=== PATIENT | female | born 1965 | race American Indian/Alaskan Native ===

== ENCOUNTER 2016-11-05 03:04 | Emergency (ER) | payer MEDICARE ==
[2016-11-05 03:36] LABS: Basophils % (Auto) 0.5 % (0.0-1.8); Eosinophils % (Auto) 8.7 % (0.0-4.3); Hematocrit 40.7 % (30.3-42.9); Hemoglobin 13.6 gm/dl (10.1-14.3); Mean Corpuscular HGB Conc 34 % (30-34); Mean Corpuscular Hemoglobin 30 pg (28-32); Mean Corpuscular Volume 89 fl (79-97); Platelet Count 164 K/mm3 (140-440); Red Blood Count 4.57 M/mm3 (3.65-5.03); White Blood Count 4.9 K/mm3 (4.5-11.0)
[2016-11-05 04:00] LABS: Alanine Aminotransferase 11 units/L (7-56); Albumin 3.8 g/dL (3.9-5); Albumin/Globulin Ratio 1.2 %; Alkaline Phosphatase 68 units/L (35-129); Anion Gap 17 mmol/L; Bilirubin,Total 0.4 mg/dL (0.1-1.2); Blood Urea Nitrogen 9 mg/dL (7-17); Calcium 8.7 mg/dL (8.4-10.2); Carbon Dioxide 24 mmol/L (22-30); Chloride 99.8 mmol/L (98-107); Glucose 108 mg/dL (65-100); Magnesium 1.9 mg/dL (1.7-2.3); Potassium 3.9 mmol/L (3.6-5.0); Sodium 137 mmol/L (137-145)
[2016-11-05 09:54] LABS: Bilirubin,Urine NEG (Negative)
[2016-11-05 09:55] LABS: Bacteria,Urine 1+ /HPF (Negative); Blood,Urine NEG (Negative); Ketones,Urine NEG (Negative); Leukocyte Esterase,Urine NEG (Negative); Nitrite,Urine NEG (Negative); Protein,Urine <15 mg/dL mg/dL (Negative); RBC,Urine < 1.0 /HPF (0.0-6.0); Urobilinogen,Urine < 2.0 mg/dL (<2.0); WBC,Urine < 1.0 /HPF (0.0-6.0)
--- NOTE | 2016-11-05 10:35 | Emergency Department Report ---
ED Syncope HPI - General Chief Complaint: Dizziness Stated Complaint: POSS SZ Time Seen by Provider: 11/05/16 10:26 - History of Present Illness Initial Comments: In actuality the patient did not have a syncopal episode. She showed me a text message from a witness who described her event. She states that he was a passenger in a vehicle when she became disoriented. The bus driver/monitor tech stated her that she was somewhat out of it. She walked in the house of her own accord. She went upstairs and laid in her bed. She did not pass out at all. There was no witnessed shaking activity. Patient states he had another episode like this a few days ago. She states she has a history of complex partial seizures and is taking 1000 mg of Keppra twice a day for this. She has an appointment with her neurologist at [facility] on for 2416 for follow-up. She cannot identify how this absence Event was any different from her prior history of complex partial seizures. There was no injury. She has returned to her baseline. Patient states that she is she moved to [place] several years ago she has had problems with her sense of smell. This is chronic condition. She states that she's had head imaging many times for these problems and nothing has shown up. She would like me to explain why she's had difficulty with her sense of smell since coming to [place]. She did not take her blood pressure medicine today which consists of HCTZ 12.5 mg only. She has previously been on lisinopril. She denies any headache or any neurological change today. She states that she would like to move back to [place] because [place] has caused her to lose her sense of smell. Timing/Prior Episodes: single episode today Precipitating Factors: Positive: none Context: sitting, standing, activity Loss of Consciousness: no loss of consciousness Current Symptoms: back to normal - Related Data Allergies/Adverse Reactions: Allergies carbamazepine [From Tegretol] Allergy (Verified 11/05/16 03:12) Dizziness Home Medications: Ambulatory Orders levETIRAcetam [Keppra TAB] 500 mg PO BID 09/14/13 traMADol [Ultram 50 MG tab] 50 mg PO Q6HR PRN #15 tablet 09/03/15 Lisinopril/Hydrochlorothiazide [Zestoretic 10-12.5 mg] 1 tab PO QDAY #30 tablet 11/05/16 ED Review of Systems ROS: Stated complaint: POSS SZ Other details as noted in HPI Constitutional: denies: chills, fever Eyes: denies: eye pain, eye discharge, vision change ENT: denies: ear pain, throat pain Respiratory: denies: cough, shortness of breath, wheezing Cardiovascular: denies: chest pain, palpitations Endocrine: no symptoms reported Gastrointestinal: denies: abdominal pain, nausea, diarrhea Genitourinary: denies: urgency, dysuria, discharge Musculoskeletal: denies: back pain, joint swelling, arthralgia Skin: denies: rash, lesions Neurological: as per HPI, confusion, other. denies: headache, weakness, numbness, paresthesias, abnormal gait Psychiatric: denies: anxiety, depression Hematological/Lymphatic: denies: easy bleeding, easy bruising ED Past Medical Hx - Past Medical History Previous Medical History?: Yes Hx Hypertension: Yes (1999) Hx Diabetes: No Hx Headaches / Migraines: Yes Hx Seizures: Yes Hx HIV: No - Surgical History Past Surgical History?: Yes Additional Surgical History: HYSTERECTOMY. X 3-;. TONSILLECTOMY. EXPLORATORY - Social History Smoking Status: Never Smoker Substance Use Type: None - Medications Home Medications: Home Medications Medication Instructions Recorded Confirmed Last Taken Type levETIRAcetam [Keppra TAB] 500 mg PO BID 09/14/13 09/03/15 09/03/15 History traMADol [Ultram 50 MG tab] 50 mg PO Q6HR PRN #15 tablet 09/03/15 Unknown Rx Lisinopril/Hydrochlorothiazide 1 tab PO QDAY #30 tablet 11/05/16 Unknown Rx [Zestoretic 10-12.5 mg] ED Physical Exam - General Limitations: No Limitations General appearance: alert, in no apparent distress - Head Head exam: Present: atraumatic, normocephalic - Eye Eye exam: Present: normal appearance, PERRL, EOMI. Absent: scleral icterus - ENT ENT exam: Present: mucous membranes moist. Absent: normal exam - Neck Neck exam: Present: normal inspection. Absent: tenderness, meningismus - Respiratory Respiratory exam: Present: normal lung sounds bilaterally. Absent: respiratory distress - Cardiovascular Cardiovascular Exam: Present: regular rate, normal rhythm. Absent: systolic murmur, diastolic murmur, rubs, gallop - GI/Abdominal GI/Abdominal exam: Present: soft, normal bowel sounds. Absent: distended, tenderness, guarding, rebound, rigid - Extremities Exam Extremities exam: Present: normal inspection - Back Exam Back exam: Present: normal inspection - Neurological Exam Neurological exam: Present: alert, oriented X3, CN II-XII intact. Absent: motor sensory deficit - Psychiatric Psychiatric exam: Present: normal affect, normal mood - Skin Skin exam: Present: warm, dry, intact, normal color. Absent: rash ED Course Vital Signs 11/05/16 11/05/16 11/05/16 03:13 06:32 11:26 Temperature 98.4 F 97.9 F Pulse Rate 62 64 66 Respiratory 18 18 Rate Blood Pressure 154/109 178/109 167/116 O2 Sat by Pulse 100 100 Oximetry - Reevaluation(s) Reevaluation #1: The patient was given clonidine. Her blood pressure improved. I could not identify an indication for repeat imaging of her head that is a CT exam. I believe there is no indication and there certainly is radiation risk. Patient was referred to her neurologist who will be seeing her in a few days. They can make a decision on any change in her Keppra dosing. Her episodes are very atypical but as far as I can ascertain they are no different from her previous episodes that have been termed complex partial seizures. 11/05/16 11:35 ED Medical Decision Making - Lab Data Result diagrams: 11/05/16 03:24 11/05/16 03:24 Laboratory Results - last 24 hr 11/05/16 11/05/16 11/05/16 03:24 03:24 03:24 WBC 4.9 RBC 4.57 Hgb 13.6 Hct 40.7 MCV 89 MCH 30 MCHC 34 RDW 13.0 L Plt Count 164 Lymph % (Auto) 6.5 L Pierce % (Auto) 7.0 Eos % (Auto) 8.7 H Baso % (Auto) 0.5 Lymph # 0.3 L Pierce # 0.3 Eos # 0.4 Baso # 0.0 Seg Neutrophils % 77.3 H Seg Neutrophils # 3.8 Sodium 137 Potassium 3.9 Chloride 99.8 Carbon Dioxide 24 Anion Gap 17 BUN 9 Creatinine 0.6 L Estimated GFR > 60 BUN/Creatinine Ratio 15.00 Glucose 108 H Calcium 8.7 Magnesium 1.9 Total Bilirubin 0.4 AST 13 ALT 11 Alkaline Phosphatase 68 Total Protein 7.0 Albumin 3.8 L Albumin/Globulin Ratio 1.2 TSH 2.540 Urine Color Urine Turbidity Urine pH Ur Specific Lambert Urine Protein Urine Glucose (UA) Urine Ketones Urine Blood Urine Nitrite Urine Bilirubin Urine Urobilinogen Ur Leukocyte Esterase Urine WBC (Auto) Urine RBC (Auto) U Epithel Cells (Auto) Urine Bacteria (Auto) 11/05/16 09:29 WBC RBC Hgb Hct MCV MCH MCHC RDW Plt Count Lymph % (Auto) Pierce % (Auto) Eos % (Auto) Baso % (Auto) Lymph # Pierce # Eos # Baso # Seg Neutrophils % Seg Neutrophils # Sodium Potassium Chloride Carbon Dioxide Anion Gap BUN Creatinine Estimated GFR BUN/Creatinine Ratio Glucose Calcium Magnesium Total Bilirubin AST ALT Alkaline Phosphatase Total Protein Albumin Albumin/Globulin Ratio TSH Urine Color Yellow Urine Turbidity Clear Urine pH 7.0 Ur Specific Lambert 1.010 Urine Protein <15 mg/dl Urine Glucose (UA) Neg Urine Ketones Neg Urine Blood Neg Urine Nitrite Neg Urine Bilirubin Neg Urine Urobilinogen < 2.0 Ur Leukocyte Esterase Neg Urine WBC (Auto) < 1.0 Urine RBC (Auto) < 1.0 U Epithel Cells (Auto) < 1.0 Urine Bacteria (Auto) 1+ - EKG Data -: EKG Interpreted by Me EKG shows normal: sinus rhythm, axis, intervals, QRS complexes, ST-T waves - EKG Data Interpretation: nonspecific ST-T wave [email or web address] Critical care attestation.: If time is entered above; I have spent that time in minutes in the direct care of this critically ill patient, excluding procedure time. ED Disposition Clinical Impression: Poorly-controlled hypertension, Anosmia Complex partial seizure Qualifiers: Epilepsy type: partial symptomatic Intractability: not intractable Status epilepticus: with status epilepticus Qualified Code(s): G40.201 - Localization- related (focal) (partial) symptomatic epilepsy and epileptic syndromes with complex partial seizures, not intractable, with status epilepticus Disposition: DISCHARGED TO HOME OR SELFCARE Is pt being admited?: No Does the pt Need Aspirin: No Condition: Stable Instructions: Epilepsy (ED), Recurrent Seizures Adult (ED), Hypertension (ED) Additional Instructions: I have given you the name of an clearance cutter. See your seizure neurologist at [facility] as planned on the . Do not drive. I have given you a combination pill lisinopril and HCTZ. He will not have to take her HCTZ with this medicine. Follow-up with a primary care provider concerning your blood pressure. Prescriptions: Lisinopril/Hydrochlorothiazide [Zestoretic 10-12.5 mg] 1 tab PO QDAY #30 tablet Referrals: CHRIS VAZQUEZ MD [Primary Care Provider] - 3-5 Days [facility] [Provider Group] - 3-5 Days LOVE BOCANEGRA MD [Staff Physician] - 3-5 Days Time of Disposition: 11:39
[2016-11-05] MEDS ORDERED: CATAPRES PO ONE (10:46)
[2016-11-05 12:56] VITALS: BP 140/86
== END 2016-11-05 12:54 | disposition home or self-care (01) ==
LOC: ED 03:04
DX: G40.201 Localization-related (focal) (partial) symptomatic epilepsy and epileptic syndromes with complex partial seizures, not intractable, with status epilepticus (principal); I10 Essential (primary) hypertension; G43.909 Migraine, unspecified, not intractable, without status migrainosus; Z90.710 Acquired absence of both cervix and uterus; Z90.89 Acquired absence of other organs; Z98.890 Other specified postprocedural states
CPT/HCPCS: 36415; 80053; 81001; 83735; 84443; 85025; 93005; 93010; 99284